=== PATIENT | male | born 2000 | race Caucasian/White ===

== ENCOUNTER 2021-01-04 13:41 | Outpatient (CLI) | payer BC, SELFPAY ==
--- NOTE | 2021-01-04 13:48 | XR_ITS ---
WS: [id number] PA and lateral chest, 01/04/2021 Clinical Data: ABNORMAL MRI CHEST Comparison: PA and lateral chest, 04/24/2010. Findings: The heart is normal. The pulmonary vascularity is not remarkable. No pneumonia or pneumotho rax is seen. There is a small tube overlying the right side of the chest which may be a small shunt t ube. There is a localized dextroscoliosis of the thoracic spine. XR/XR chest 2V* [id number] Impression: Negative chest.
== END 2021-01-04 13:42 | disposition home or self-care (01) ==
PROVIDERS: Visit Provider Family Medicine
DX: R91.8 Other nonspecific abnormal finding of lung field (principal)
CPT/HCPCS: 71046